=== PATIENT | male | born 1960 | race American Indian/Alaskan Native ===

== ENCOUNTER 2018-05-02 18:46 | Emergency (ER) | payer OTHER ==
[2018-05-02 19:01] VITALS: RESP 18
--- NOTE | 2018-05-02 19:10 | C.PDOC ---
History Of Present Illness 57 y/o male presents to the ER by EMS c/o feeling lightheaded, dizziness and nausea today after smelling chemical fumes/odor while [place] [employer]. 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 Pt reports when he arrived at [address] the second time, he started feeling the above symptoms. Pt has no other associated sx or complaints at this time. He denies any headache, chest pain, SOB, vomiting, or abdominal pain. He is alert and oriented, not in any acute distress. Time Seen by Provider: 05/02/18 19:10 Chief Complaint (Nursing): Medical Clearance History Per: Patient History/Exam Limitations: no limitations Onset/Duration Of Symptoms: Hrs Current Symptoms Are (Timing): Still Present Past Medical History Reviewed: Historical Data, Nursing Documentation, Vital Signs Vital Signs: Last Vital Signs Temp 98.6 F 05/02/18 18:57 Pulse 90 05/02/18 18:57 Resp 18 05/02/18 18:57 BP 170/88 H 05/02/18 18:57 Pulse Ox 98 05/02/18 18:57 - Medical History PMH: Benign Prostatic Hyperplasia, GERD, HTN, Hypercholesterolemia Family History: States: No Known Family Hx - Social History Hx Tobacco Use: No Hx Alcohol Use: No Hx Substance Use: No Review Of Systems Constitutional: Negative for: Fever, Chills, Sweats, Weakness ENT: Negative for: Nose Discharge, Throat Pain Cardiovascular: Positive for: Light Headedness. Negative for: Chest Pain, Palpitations Respiratory: Negative for: Cough, Shortness of Breath Gastrointestinal: Positive for: Nausea. Negative for: Vomiting, Abdominal Pain Musculoskeletal: Negative for: Neck Pain, Back Pain Skin: Negative for: Rash Neurological: Positive for: Dizziness. Negative for: Weakness, Numbness, Headache Physical Exam - Physical Exam Appears: Well, Non-toxic, No Acute Distress Skin: Warm, Dry, No Rash Head: Atraumatic, Normacephalic Eye(s): bilateral: Normal Inspection, PERRL, EOMI Ear(s): Bilateral: Normal Nose: No Discharge Oral Mucosa: Moist Throat: Normal, No Erythema, No Exudate, No Drooling Neck: Normal ROM, Supple Chest: Symmetrical Cardiovascular: Rhythm Regular Respiratory: Normal Breath Sounds, No Rales, No Rhonchi, No Wheezing Gastrointestinal/Abdominal: Soft, No Tenderness Back: No CVA Tenderness Extremity: Normal ROM Extremity: Bilateral: Atraumatic Neurological/Psych: Oriented x3, Normal Speech, Normal Cranial Nerves, Normal Motor, Normal Sensation Gait: Steady Other Neurological Findings: No Facial Palsy, No Tongue Deviation ED Course And Treatment O2 Sat by Pulse Oximetry: 98 (RA) Pulse Ox Interpretation: Normal Medical Decision Making Medical Decision Making: Plans: -- Carboxyhemoglobin was 3 -- Zofran and Pepcid given -- PO challenge tolerated -- Start Antivert prn dizziness -- Follow up with PMD in 1-2 days -- patient verbalized understanding and is in agreement with plan -- patient stable for discharge -- Return to ED if symptoms worsen Disposition Counseled Patient/Family Regarding: Diagnosis, Need For Followup, Rx Given - Disposition Referrals: [facility] [Outside] Disposition: HOME/ ROUTINE Disposition Time: 20:45 Condition: IMPROVED Additional Instructions: -- Start Antivert prn dizziness -- Follow up with PMD in 1-2 days -- Return to ED if symptoms worsen Prescriptions: Meclizine [Antivert] 12.5 mg PO TID PRN #30 tab PRN Reason: Dizziness Instructions: Dizziness, Nonvertigo, (DC), Vertigo (a Type of Dizziness) (DC) Forms: Access Closure (Kinyarwanda) - Clinical Impression Clinical Impression: Dizziness - 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 - Scribe Statement The provider has reviewed the documentation as recorded by the Krista Clark Do All medical record entries made by the Scribe were at my direction and personally dictated by me. I have reviewed the chart and agree that the record accurately reflects my personal performance of the history, physical exam, medical decision making, and the department course for this patient. I have also personally directed, reviewed, and agree with the discharge instructions and disposition.
[2018-05-02 20:32] VITALS: BP 137/86; PULSE 50; TEMP 98.9
[2018-05-02 20:43] VITALS: O2SAT 98
== END 2018-05-02 20:51 | disposition home or self-care (01) ==
LOC: C.ER 18:46
DX: R42 Dizziness and giddiness (principal); I10 Essential (primary) hypertension